=== PATIENT | female | born 1995 | race Caucasian/White ===

== ENCOUNTER 2019-08-06 05:30 | Emergency (ER) | payer BC ==
[~2019-08-06] VITALS: Ht 144.8 cm; Wt 65.8 kg
[2019-08-06 05:30] VITALS: BP 164/103
--- NOTE | 2019-08-06 05:39 | NUR ---
24 Y/O FEMALE BIBA BLS C/O VAGINAL BLEEDING X 20 MIN PRIOR TO CALL FOR AMBULANCE. PT STATES IT IS "SPOTTING". PER PT SHE HAS TAKEN MULTIPLE TESTS SINCE NOV AND ALL HAVE BEEN +. PER PT. LMP 05/01/19. DENIES PAIN AT THIS TIME. PT SITTING UPRIGHT IN BED CALM AND PLEASANT. VSS. MEDHX: HTN ALLERGIES: NKA
--- NOTE | 2019-08-06 05:40 | NUR ---
PT AMBULATED TO RESTROOM, URINE COLLECTED
--- NOTE | 2019-08-06 05:41 | NUR ---
DR RODRIGUEZ AT BEDSIDE EXAMINING PT
--- NOTE | 2019-08-06 06:02 | NUR ---
LAB AT BEDSIDE.
[2019-08-06 06:16] LABS: BASOPHILS % (AUTO) 0.5 % (0.0-2.0); EOSINOPHILS # (AUTO) 0.1 K/uL (0-0.4); EOSINOPHILS % (AUTO) 1.5 % (0.0-4.0); HEMATOCRIT 39.7 % (36-48); HEMOGLOBIN 13.4 g/dL (12.0-16.0); LYMPHOCYTES # (AUTO) 1.9 K/uL (2.5-16.5); LYMPHOCYTES % (AUTO) 21.8 % (20.5-51.1); MEAN CORPUSCULAR HEMOGLOBIN 29 pg (27-31); MEAN CORPUSCULAR HGB CONC 34 g/dL (33-37); MONOCYTES # (AUTO) 0.8 K/uL (0.8-1.0); NEUTROPHILS # (AUTO) 5.8 K/uL (1.8-7.7); NEUTROPHILS % (AUTO) 67.2 % (42.2-75.2); PLATELET COUNT (AUTO) 205 K/uL (140-450); RED BLOOD CELL COUNT(AUTO) 4.67 MIL/uL (4.20-5.40); RED CELL DISTRIBUTION WIDTH 14.4 % (11.6-13.7); WHITE BLOOD COUNT (AUTO) 8.7 K/uL (4.8-10.8)
[2019-08-06 06:26] LABS: APPEARANCE,URINE HAZY (CLEAR); BILIRUBIN,URINE 1+ (NEGATIVE); BLOOD, URINE 3+ (NEGATIVE); COLOR,URINE AMBER (YELLOW); LEUKOCYTE ESTERASE ,URINE TRACE (NEGATIVE); NITRITE, URINE POSITIVE (NEGATIVE); UGLUCOSE NEGATIVE (NEGATIVE)
--- NOTE | 2019-08-06 06:29 | NUR ---
SITTING UPRIGHT IN BED, RR EVEN AND UNLABORED. PT REMAINS ON MONITOR. VSS. WILL CONTINUE TO MONITOR.
--- NOTE | 2019-08-06 06:41 | NUR ---
ULTRASOUND AT BEDSIDE.
[2019-08-06 06:42] LABS: PROTHROMBIN TIME 9.1 secs (10.8-13.4)
[2019-08-06 06:50] LABS: WBC,URINE 0-5 /HPF (0-5)
[2019-08-06 06:52] LABS: RBC,URINE TOO NUMEROUS TO COUN /HPF (0-5); TRICHOMONAS,URINE Few /HPF (None Seen)
--- NOTE | 2019-08-06 07:10 | NUR ---
ASSUMED CARE OF PT.
[2019-08-06 08:52] VITALS: BP 164/94
--- NOTE | 2019-08-06 08:52 | NUR ---
Patient discharged with v/s stable. Written and verbal after care instructions given and explained. Patient verbalized understanding. Ambulatory with steady gait. All questions addressed prior to discharge. Advised to follow up with PMD.
--- NOTE | 2019-08-06 08:55 | NUR ---
BUS PASS PROVIDED.
[2019-08-08 06:07] LABS: CHLAMYDIA TRACHOMATIS AMP DNA Negative (Negative)
== END 2019-08-06 08:52 | disposition home or self-care (01) ==
LOC: MED 05:30
DX: O46.91 Antepartum hemorrhage, unspecified, first trimester (principal); Z3A.12 12 weeks gestation of pregnancy; I10 Essential (primary) hypertension
CPT/HCPCS: 36415; 76801; 81001; 81025; 84702; 85025; 85610; 85730; 86900; 86901; 87086; 87210; 87491; 99284; Q0092